=== PATIENT | male | born 1965 | race Caucasian/White ===

== ENCOUNTER 2018-10-09 07:27 | Observation (INO) | payer MEDICARE, OTHER ==
[2018-10-09] MEDS ORDERED: Sodium Chloride 0.9% 10 ML Syringe FLUSH PRN ×2 (07:50→11:09)
[2018-10-09 08:14] LABS: ANION GAP 15.4; CHLORIDE,CL 104 mmol/L (101-111); SODIUM,NA 139 mmol/L (135-145)
--- NOTE | 2018-10-09 08:24 | EDM.PDOC ---
ED HPI GENERAL MEDICAL PROBLEM - General Chief Complaint: Chest Pain Stated Complaint: CHEST PAIN,AMBULANCE Time Seen by Provider: 10/09/18 07:50 Source of Information: Reports: Patient, EMS, EMS Notes Reviewed, RN, RN Notes Reviewed History Limitations: Reports: No Limitations - History of Present Illness INITIAL COMMENTS - FREE TEXT/NARRATIVE: Patient presents to ER with complaint of pressure in the chest. He got up and almost passed out. Patient states he has been cardioverted x3, last being 2-3 weeks ago--done at [place], [place]. Chest pressure began at 0200. Onset: Today Duration: Constant Location: Reports: Chest Quality: Reports: Ache Severity: Severe Improves with: Reports: None Worsens with: Reports: None Associated Symptoms: Reports: No Other Symptoms - Related Data Allergies Allergy/AdvReac Type Severity Reaction Status Date / Time lisinopril Allergy Cough Verified 10/09/18 14:58 Home Meds: Home Meds Apixaban [Eliquis] 5 mg PO BID 10/09/18 [History] Carvedilol [Coreg] 6.25 mg PO BID 10/09/18 [History] Fish Oil/[place]-3 Fatty Acids [Fish Oil] 1 each PO DAILY 10/09/18 [History] Losartan [Cozaar] 100 mg PO DAILY 10/09/18 [History] Multivitamin [Multivitamins] 1 each PO DAILY 10/09/18 [History] Pravastatin [Pravachol] 40 mg PO BEDTIME 10/09/18 [History] hydroCHLOROthiazide [Hydrochlorothiazide] 25 mg PO DAILY 10/09/18 [History] Past Medical History Cardiovascular History: Reports: Heart Failure, High Cholesterol, Hypertension ED ROS GENERAL - Review of Systems Review Of Systems: ROS reveals no pertinent complaints other than HPI. ED EXAM, DIZZINESS - Physical Exam Exam: See Below Exam Limited By: No Limitations General Appearance: Alert, WD/WN, No Apparent Distress Eye Exam: Bilateral Eye: EOMI, Normal Inspection, PERRL Ears: Normal External Exam, Normal Canal, Hearing Grossly Normal, Normal TMs Nose: Normal Inspection, Normal Mucosa, No Blood Throat/Mouth: Normal Inspection, Normal Lips, Normal Teeth, Normal Gums, Normal Oropharynx, Normal Voice, No Airway Compromise Head Exam: Atraumatic, Normocephalic Neck: Normal Inspection, Supple, Non-Tender, Full Range of Motion Respiratory/Chest: Other (chest pressure. Lungs are coarse. ) Cardiovascular: Irregularly Irregular GI/Abdominal: Other (5 abdominal surgeries) (Male) Exam: Deferred Rectal (Males) Exam: Deferred Neurological: Alert, Normal Mood/Affect, Normal Dorsiflexion, CN II-XII Intact, Normal Plantar Flexion, Normal Gait, Normal Reflexes, No Motor/Sensory Deficits , Oriented x 3 Back Exam: Normal Inspection, Full Range of Motion, NT Extremities: Normal Inspection, Normal Range of Motion, Non-Tender, No Pedal Edema, Normal Capillary Refill Psychiatric: Normal Affect Skin Exam: Warm, Dry, Intact, Normal Color, No Rash ED PROCEDURES - Cardioversion Time of Cardioversion: 10:12 Indication: Other (Severely symptomatic atrial fibrillation in controlled rate) Patient Counseled: Yes Informed Consent Obtained: Yes Preparation: IV Access, Airway Management Equipment, Supplemental Oxygen, RT in Room, Monitor, Reversal Agents Available, 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) Pre-Procedure Sedation: Midazolam, Propofol Cardioversion Energy: 200J Sync Mode: Biphasic Successful: Yes (Sinus Rhythm 70-80) Number of Attempts: 1 Patient Condition Post Cardioversion: Improved Post Cardioversion EKG Reviewed: Yes (NSR) Course - Vital Signs Last Recorded V/S: Last Vital Signs Temp 98.9 F 10/09/18 15:09 Pulse 76 10/09/18 15:09 Resp 18 10/09/18 15:09 BP 117/68 10/09/18 15:09 Pulse Ox 98 10/09/18 15:09 Orthostatic Blood Pressure [ 132/83 Standing] Orthostatic Blood Pressure [ 129/80 Sitting] Orthostatic Blood Pressure [ 105/69 Supine] - Orders/Labs/Meds Labs: Laboratory Tests 10/09/18 10/09/18 10/09/18 Range/Units 07:35 07:35 07:35 WBC 9.5 (5.0-10.0) 10^3/uL RBC 5.36 (4.6-6.2) 10^6/uL Hgb 15.8 (14.0-18.0) g/dL Hct 47.7 (40.0-54.0) % MCV 89.0 (80-100) fL MCH 29.5 (27.0-34.0) pg MCHC 33.1 (33.0-35.0) g/dL Plt Count 279 (150-450) 10^3/uL Neut % (Auto) 62.0 (42.2-75.2) % Lymph % (Auto) 21.8 (20.5-50.1) % [place] % (Auto) 12.0 H (2-8) % Eos % (Auto) 3.8 H (1.0-3.0) % Baso % (Auto) 0.4 (0.0-1.0) % PT 9.9 (9.0-12.0) SEC INR 1.0 (0.9-1.2) Sodium 139 (135-145) mmol/L Potassium 3.4 L (3.6-5.0) mmol/L Chloride 104 (101-111) mmol/L Carbon Dioxide 23.0 (21.0-31.0) mmol/L Anion Gap 15.4 BUN 19 H (7-18) mg/dL Creatinine 0.9 (0.6-1.3) mg/dL Est Cr Clr Drug Dosing TNP Estimated GFR (MDRD) > 60 BUN/Creatinine Ratio 21.11 Glucose 122 H (74-105) mg/dL Calcium 9.4 (8.4-10.2) mg/dl Magnesium (1.8-2.5) mg/dL Total Bilirubin 0.7 (0.2-1.0) mg/dL AST 21 (10-42) IU/L ALT 18 (10-60) IU/L Alkaline Phosphatase 50 (42-121) IU/L Troponin I < 0.02 (0.00-0.02) ng/ml Total Protein 7.4 (6.7-8.2) g/dl Albumin 4.1 (3.2-5.5) g/dl Globulin 3.3 Albumin/Globulin Ratio 1.24 // Range/Units 09:35 WBC (5.0-10.0) 10^3/uL RBC (4.6-6.2) 10^6/uL Hgb (14.0-18.0) g/dL Hct (40.0-54.0) % MCV (80-100) fL MCH (27.0-34.0) pg MCHC (33.0-35.0) g/dL Plt Count (150-450) 10^3/uL Neut % (Auto) (42.2-75.2) % Lymph % (Auto) (20.5-50.1) % [place] % (Auto) (2-8) % Eos % (Auto) (1.0-3.0) % Baso % (Auto) (0.0-1.0) % PT (9.0-12.0) SEC INR (0.9-1.2) Sodium (135-145) mmol/L Potassium (3.6-5.0) mmol/L Chloride (101-111) mmol/L Carbon Dioxide (21.0-31.0) mmol/L Anion Gap BUN (7-18) mg/dL Creatinine (0.6-1.3) mg/dL Est Cr Clr Drug Dosing Estimated GFR (MDRD) BUN/Creatinine Ratio Glucose (74-105) mg/dL Calcium (8.4-10.2) mg/dl Magnesium 2.0 (1.8-2.5) mg/dL Total Bilirubin (0.2-1.0) mg/dL AST (10-42) IU/L ALT (10-60) IU/L Alkaline Phosphatase (42-121) IU/L Troponin I (0.00-0.02) ng/ml Total Protein (6.7-8.2) g/dl Albumin (3.2-5.5) g/dl Globulin Albumin/Globulin Ratio Meds: Medications Discontinued Medications Generic Name Dose Route Start Last Admin Trade Name Freq PRN Reason Stop Dose Admin Carvedilol 6.25 mg 10/09/18 21:00 Coreg PO BID [facility] Hydrochlorothiazide 25 mg 10/10/18 09:00 Hydrochlorothiazide PO DAILY [facility] Losartan Potassium 100 mg 10/10/18 09:00 Cozaar PO DAILY [facility] Midazolam HCl Confirm 10/09/18 10:08 Versed 1 Mg/Ml Administered 10/09/18 10:09 Dose 2 mg .ROUTE .STK-MED ONE Multivitamins 1 each 10/10/18 09:00 Thera PO DAILY [facility] Non-Formulary Medication 5 mg 10/09/18 21:00 Apixaban [Eliquis] PO BID [facility] Non-Formulary Medication 1 each 10/10/18 09:00 Fish Oil/[place]-3 Fatty Acids [Fish Oil] PO DAILY [facility] Potassium Chloride 40 meq 10/09/18 11:12 10/09/18 13:18 Klor-Con 10 PO 10/09/18 11:13 40 meq ONETIME ONE Administration Pravastatin Sodium 40 mg 10/09/18 21:00 Pravachol PO BEDTIME [facility] Sodium Chloride 10 ml 10/09/18 07:50 Saline Flush FLUSH ASDIRECTED PRN Keep Vein Open Sodium Chloride 10 ml 10/09/18 11:09 Saline Flush FLUSH ASDIRECTED PRN Keep Vein Open - Radiology Interpretation Free Text/Narrative:: Chest xray: Findings/impression: Heart size is within normal limits for technique. The aorta appears tortuous but non-aneurysmal. Lungs are grossly clear. There is no effusion or pneumothorax. Thank you for allowing us to participate in the care of your patient. Dictated and Authenticated by: Chava Mckeon MD 10/09/2018 8:07 AM Central Time ([place] & [place]) See rad report - Re-Assessments/Exams Free Text/Narrative Re-Assessment/Exam: 10/12/18 07:56 Patient case discussed with Dr. Maldonado who agreed to admit the patient for observation. Departure - Departure Time of Disposition: 11:03 Disposition: Refer to Observation Condition: Good Clinical Impression: Atrial fibrillation with normal ventricular rate, History of cardioversion, Dizziness, Near syncope - Discharge Information *PRESCRIPTION DRUG MONITORING PROGRAM REVIEWED*: No *COPY OF PRESCRIPTION DRUG MONITORING REPORT IN PATIENT DANYELLE: No
[2018-10-09] MEDS ORDERED: Midazolam 1 MG/ML 2 ML SDV ONE (10:08)
[2018-10-09] MEDS ORDERED: Potassium Chloride 10 MEQ Tab.ER PO ONE (11:12)
--- NOTE | 2018-10-09 11:17 | PCM.HP ---
H&P History of Present Illness - General Date of Service: 10/09/18 Admit Problem/Dx: Admission Diagnosis/Problem Admission Diagnosis/Problem Atrial fibrillation or flutter Source of Information: Patient History Limitations: Reports: No Limitations - History of Present Illness Initial Comments - Free Text/Narative: 53 yo M with PMH of afib on AC, htn, hld, who presents with palpitations, pre- syncopal episode. Patient reports waking up this morning with palpitations, dizziness/ lightheadedness. He had no CP, no SOB, no diaphoresis, no abdominal pain, no n/v HE came to the ER where he was found to be in afib. He had a DC cardioversion with conversion to SR. Symptoms resolved after DC cardioversion Admission was requested for ACS r/o, monitoring. Lives in [place]. Visiting [place] for i-drive. - Related Data Allergies/Adverse Reactions: Allergies Allergy/AdvReac Type Severity Reaction Status Date / Time No Known Allergies Allergy Verified 10/09/18 07:42 Home Medications: Home Meds Apixaban [Eliquis] 5 mg PO BID 10/09/18 [History] Carvedilol [Coreg] 6.25 mg PO BID 10/09/18 [History] Fish Oil/[place]-3 Fatty Acids [Fish Oil] 1 each PO DAILY 10/09/18 [History] Losartan [Cozaar] 100 mg PO DAILY 10/09/18 [History] Multivitamin [Multivitamins] 1 each PO DAILY 10/09/18 [History] Pravastatin [Pravachol] 40 mg PO BEDTIME 10/09/18 [History] hydroCHLOROthiazide [Hydrochlorothiazide] 25 mg PO DAILY 10/09/18 [History] Past Medical History Cardiovascular History: Reports: Afib - Past Surgical History Cardiovascular Surgical History: Reports: Other (See Below) Other Cardiovascular Surgeries/Procedures: cardiversion Social & Family History - Family History Family Medical History: Noncontributory - Tobacco Use Smoking Status *Q: Never Smoker - Caffeine Use Caffeine Use: Reports: Coffee - Alcohol Use Days Per Week of Alcohol Use: 2 Number of Drinks Per Day: 1 Total Drinks Per Week: 2 - Recreational Drug Use Recreational Drug Use: No H&P Review of Systems - Review of Systems: Review Of Systems: ROS reveals no pertinent complaints other than HPI. General: Reports: No Symptoms HEENT: Reports: No Symptoms Pulmonary: Reports: No Symptoms Cardiovascular: Reports: Palpitations Gastrointestinal: Reports: No Symptoms Genitourinary: Reports: No Symptoms Musculoskeletal: Reports: No Symptoms Exam - Exam Exam: See Below - Vital Signs Vital Signs: Last Vital Signs Temp 37.0 C 10/09/18 11:08 Pulse 75 10/09/18 11:08 Resp 20 10/09/18 11:08 BP 101/71 10/09/18 11:08 Pulse Ox 99 10/09/18 11:08 Orthostatic Blood Pressure [ 132/83 Standing] Orthostatic Blood Pressure [ 129/80 Sitting] Orthostatic Blood Pressure [ 105/69 Supine] Weight: 185.791 kg - Exam General: Alert, Oriented HEENT: Conjunctiva Clear Neck: Supple Lungs: Clear to Auscultation Cardiovascular: Regular Rate, Regular Rhythm GI/Abdominal Exam: Normal Bowel Sounds, Soft - Patient Data Lab Results Last 24 hrs: Laboratory Results - last 24 hr 10/09/18 10/09/18 10/09/18 Range/Units 07:35 07:35 07:35 WBC 9.5 (5.0-10.0) 10^3/uL RBC 5.36 (4.6-6.2) 10^6/uL Hgb 15.8 (14.0-18.0) g/dL Hct 47.7 (40.0-54.0) % MCV 89.0 (80-100) fL MCH 29.5 (27.0-34.0) pg MCHC 33.1 (33.0-35.0) g/dL Plt Count 279 (150-450) 10^3/uL Neut % (Auto) 62.0 (42.2-75.2) % Lymph % (Auto) 21.8 (20.5-50.1) % [place] % (Auto) 12.0 H (2-8) % Eos % (Auto) 3.8 H (1.0-3.0) % Baso % (Auto) 0.4 (0.0-1.0) % PT 9.9 (9.0-12.0) SEC INR 1.0 (0.9-1.2) Sodium 139 (135-145) mmol/L Potassium 3.4 L (3.6-5.0) mmol/L Chloride 104 (101-111) mmol/L Carbon Dioxide 23.0 (21.0-31.0) mmol/L Anion Gap 15.4 BUN 19 H (7-18) mg/dL Creatinine 0.9 (0.6-1.3) mg/dL Est Cr Clr Drug Dosing TNP Estimated GFR (MDRD) > 60 BUN/Creatinine Ratio 21.11 Glucose 122 H (74-105) mg/dL Calcium 9.4 (8.4-10.2) mg/dl Magnesium (1.8-2.5) mg/dL Total Bilirubin 0.7 (0.2-1.0) mg/dL AST 21 (10-42) IU/L ALT 18 (10-60) IU/L Alkaline Phosphatase 50 (42-121) IU/L Troponin I < 0.02 (0.00-0.02) ng/ml Total Protein 7.4 (6.7-8.2) g/dl Albumin 4.1 (3.2-5.5) g/dl Globulin 3.3 Albumin/Globulin Ratio 1.24 10/09/18 Range/Units 09:35 WBC (5.0-10.0) 10^3/uL RBC (4.6-6.2) 10^6/uL Hgb (14.0-18.0) g/dL Hct (40.0-54.0) % MCV (80-100) fL MCH (27.0-34.0) pg MCHC (33.0-35.0) g/dL Plt Count (150-450) 10^3/uL Neut % (Auto) (42.2-75.2) % Lymph % (Auto) (20.5-50.1) % [place] % (Auto) (2-8) % Eos % (Auto) (1.0-3.0) % Baso % (Auto) (0.0-1.0) % PT (9.0-12.0) SEC INR (0.9-1.2) Sodium (135-145) mmol/L Potassium (3.6-5.0) mmol/L Chloride (101-111) mmol/L Carbon Dioxide (21.0-31.0) mmol/L Anion Gap BUN (7-18) mg/dL Creatinine (0.6-1.3) mg/dL Est Cr Clr Drug Dosing Estimated GFR (MDRD) BUN/Creatinine Ratio Glucose (74-105) mg/dL Calcium (8.4-10.2) mg/dl Magnesium 2.0 (1.8-2.5) mg/dL Total Bilirubin (0.2-1.0) mg/dL AST (10-42) IU/L ALT (10-60) IU/L Alkaline Phosphatase (42-121) IU/L Troponin I (0.00-0.02) ng/ml Total Protein (6.7-8.2) g/dl Albumin (3.2-5.5) g/dl Globulin Albumin/Globulin Ratio Result Diagrams: 10/09/18 07:35 10/09/18 07:35 Problem List Initiated/Reviewed/Updated: Yes Orders Last 24hrs: Active Orders 24 hr Category Date Time Status Patient Status [ADT] Routine ADT 10/09/18 11:09 Ordered Ambulate [RC] ASDIRECTED Care 10/09/18 11:09 Ordered Height and Weight [RC] DAILY Care 10/09/18 11:09 Ordered Oxygen Therapy [RC] PRN Care 10/09/18 11:09 Ordered Peripheral IV Care [RC] . DIRECTED Care 10/09/18 07:51 Active Peripheral IV Care [RC] . DIRECTED Care 10/09/18 11:09 Ordered Up With Assistance [RC] ASDIRECTED Care 10/09/18 11:09 Ordered VTE/DVT Education [RC] PER UNIT ROUTINE Care 10/09/18 11:09 Ordered Vital Signs [RC] Q4H Care 10/09/18 11:09 Ordered Regular Diet [DIET] Diet 10/09/18 Breakfast Ordered TROPONIN I [CHEM] Q6H Lab 10/09/18 16:00 Ordered TROPONIN I [CHEM] Q6H Lab 10/09/18 22:00 Ordered Apixaban [Eliquis] Med 10/09/18 21:00 Ordered 5 mg PO BID Carvedilol [Coreg] Med 10/09/18 21:00 Ordered 6.25 mg PO BID Fish Oil/[place]-3 Fatty Acids [Fish Oil] Med 10/10/18 09:00 Ordered 1 each PO DAILY Losartan [Cozaar] Med 10/10/18 09:00 Ordered 100 mg PO DAILY Multivitamin [Multivitamins] Med 10/10/18 09:00 Ordered 1 each PO DAILY Potassium Chloride [Klor-Con 10] Med 10/09/18 11:12 Once 40 meq PO ONETIME ONE Pravastatin Sodium Med 10/09/18 21:00 Ordered 40 mg PO BEDTIME Sodium Chloride 0.9% [Saline Flush] Med 10/09/18 07:50 Active 10 ml FLUSH ASDIRECTED PRN Sodium Chloride 0.9% [Saline Flush] Med 10/09/18 11:09 Ordered 10 ml FLUSH ASDIRECTED PRN hydroCHLOROthiazide Med 10/10/18 09:00 Ordered 25 mg PO DAILY Peripheral IV Insertion Adult [OM.PC] Routine Oth 10/09/18 11:09 Ordered Peripheral IV Insertion Adult [OM.PC] Stat Oth 10/09/18 07:50 Ordered Saline Lock Insert [OM.PC] Routine Oth 10/09/18 11:09 Ordered Code Status [Resuscitation Status] Routine Resus Stat 10/09/18 11:10 Ordered Medication Orders Sodium Chloride (Saline Flush) 10 ml FLUSH ASDIRECTED PRN PRN Reason: Keep Vein Open Sodium Chloride (Saline Flush) 10 ml FLUSH ASDIRECTED PRN PRN Reason: Keep Vein Open Assessment/Plan Comment:: #Symptomatic Atrial fibrillation s/p DC cardioversion stable initial troponin negative monitor on cardiac nurse serial EKG, serial troponin continue carvedilol continue anticoagulation with eliquis #HTN continue home BP meds #HLD continue pravastatin #DVT ppx on eliquis FC
--- NOTE | 2018-10-09 16:17 | PCM.DCSUM1 ---
Discharge Summary - Hospital Course Free Text/Narrative:: 53 yo M with PMH of obesity, afib on AC, htn, hld who p/w afib. Had DC cardioversion in the ED with conversion to NSR However, continued to have marked bradycardia during observation on the medical floor Unable to transfer to [place] due to weather advisory. Called [facility], and patient was accepted by Dr. Uriostegui. - Discharge Data Discharge Date: 10/09/18 Discharge Disposition: DC/Tfer to Acute Hospital 02 Condition: Good - Discharge Plan Home Medications: Home Meds Apixaban [Eliquis] 5 mg PO BID 10/09/18 [History] Carvedilol [Coreg] 6.25 mg PO BID 10/09/18 [History] Fish Oil/[place]-3 Fatty Acids [Fish Oil] 1 each PO DAILY 10/09/18 [History] Losartan [Cozaar] 100 mg PO DAILY 10/09/18 [History] Multivitamin [Multivitamins] 1 each PO DAILY 10/09/18 [History] Pravastatin [Pravachol] 40 mg PO BEDTIME 10/09/18 [History] hydroCHLOROthiazide [Hydrochlorothiazide] 25 mg PO DAILY 10/09/18 [History] Forms: ED Department Discharge Referrals: PCP,Not In Area [Primary Care Provider] - - Discharge Summary/Plan Comment DC Time >30 min.: Yes - Patient Data Vitals - Most Recent: Last Vital Signs Temp 37.2 C 10/09/18 15:09 Pulse 76 10/09/18 15:09 Resp 18 10/09/18 15:09 BP 117/68 10/09/18 15:09 Pulse Ox 98 10/09/18 15:09 Orthostatic Blood Pressure [ 132/83 Standing] Orthostatic Blood Pressure [ 129/80 Sitting] Orthostatic Blood Pressure [ 105/69 Supine] Weight - Most Recent: 185.791 kg I&O - Last 24 hours: Intake & Output 10/09/18 10/09/18 10/09/18 06:59 14:59 22:59 Intake Total 940 Balance 940 Lab Results - Last 24 hrs: Laboratory Results - last 24 hr 10/09/18 10/09/18 10/09/18 Range/Units 07:35 07:35 07:35 WBC 9.5 (5.0-10.0) 10^3/uL RBC 5.36 (4.6-6.2) 10^6/uL Hgb 15.8 (14.0-18.0) g/dL Hct 47.7 (40.0-54.0) % MCV 89.0 (80-100) fL MCH 29.5 (27.0-34.0) pg MCHC 33.1 (33.0-35.0) g/dL Plt Count 279 (150-450) 10^3/uL Neut % (Auto) 62.0 (42.2-75.2) % Lymph % (Auto) 21.8 (20.5-50.1) % [place] % (Auto) 12.0 H (2-8) % Eos % (Auto) 3.8 H (1.0-3.0) % Baso % (Auto) 0.4 (0.0-1.0) % PT 9.9 (9.0-12.0) SEC INR 1.0 (0.9-1.2) Sodium 139 (135-145) mmol/L Potassium 3.4 L (3.6-5.0) mmol/L Chloride 104 (101-111) mmol/L Carbon Dioxide 23.0 (21.0-31.0) mmol/L Anion Gap 15.4 BUN 19 H (7-18) mg/dL Creatinine 0.9 (0.6-1.3) mg/dL Est Cr Clr Drug Dosing TNP Estimated GFR (MDRD) > 60 BUN/Creatinine Ratio 21.11 Glucose 122 H (74-105) mg/dL Calcium 9.4 (8.4-10.2) mg/dl Magnesium (1.8-2.5) mg/dL Total Bilirubin 0.7 (0.2-1.0) mg/dL AST 21 (10-42) IU/L ALT 18 (10-60) IU/L Alkaline Phosphatase 50 (42-121) IU/L Troponin I < 0.02 (0.00-0.02) ng/ml Total Protein 7.4 (6.7-8.2) g/dl Albumin 4.1 (3.2-5.5) g/dl Globulin 3.3 Albumin/Globulin Ratio 1.24 10/09/18 Range/Units 09:35 WBC (5.0-10.0) 10^3/uL RBC (4.6-6.2) 10^6/uL Hgb (14.0-18.0) g/dL Hct (40.0-54.0) % MCV (80-100) fL MCH (27.0-34.0) pg MCHC (33.0-35.0) g/dL Plt Count (150-450) 10^3/uL Neut % (Auto) (42.2-75.2) % Lymph % (Auto) (20.5-50.1) % [place] % (Auto) (2-8) % Eos % (Auto) (1.0-3.0) % Baso % (Auto) (0.0-1.0) % PT (9.0-12.0) SEC INR (0.9-1.2) Sodium (135-145) mmol/L Potassium (3.6-5.0) mmol/L Chloride (101-111) mmol/L Carbon Dioxide (21.0-31.0) mmol/L Anion Gap BUN (7-18) mg/dL Creatinine (0.6-1.3) mg/dL Est Cr Clr Drug Dosing Estimated GFR (MDRD) BUN/Creatinine Ratio Glucose (74-105) mg/dL Calcium (8.4-10.2) mg/dl Magnesium 2.0 (1.8-2.5) mg/dL Total Bilirubin (0.2-1.0) mg/dL AST (10-42) IU/L ALT (10-60) IU/L Alkaline Phosphatase (42-121) IU/L Troponin I (0.00-0.02) ng/ml Total Protein (6.7-8.2) g/dl Albumin (3.2-5.5) g/dl Globulin Albumin/Globulin Ratio Med Orders - Current: Current Medications Carvedilol (Coreg) 6.25 mg PO BID [facility] Hydrochlorothiazide (Hydrochlorothiazide) 25 mg PO DAILY [facility] Losartan Potassium (Cozaar) 100 mg PO DAILY [facility] Multivitamins (Thera) 1 each PO DAILY [facility] Non-Formulary Medication (Apixaban [Eliquis]) 5 mg PO BID [facility] Non-Formulary Medication (Fish Oil/[place]-3 Fatty Acids [Fish Oil]) 1 each PO DAILY [facility] Pravastatin Sodium (Pravachol) 40 mg PO BEDTIME [facility] Sodium Chloride (Saline Flush) 10 ml FLUSH ASDIRECTED PRN PRN Reason: Keep Vein Open Sodium Chloride (Saline Flush) 10 ml FLUSH ASDIRECTED PRN PRN Reason: Keep Vein Open Discontinued Medications Midazolam HCl (Versed 1 Mg/Ml) Confirm Administered Dose 2 mg .ROUTE .STK-MED ONE Stop: 10/09/18 10:09 Potassium Chloride (Klor-Con 10) 40 meq PO ONETIME ONE Stop: 10/09/18 11:13 Last Admin: 10/09/18 13:18 Dose: 40 meq
[2018-10-09] MEDS ORDERED: Pravastatin 20 MG Tab PO SCH (21:00)
[2018-10-09] MEDS ORDERED: Carvedilol 6.25 MG Tab PO SCH (21:00)
[2018-10-09] MEDS ORDERED: Non-Formulary Medication 1 Each (Apixaban [Eliquis] 5 MG) PO SCH (21:00)
[2018-10-10] MEDS ORDERED: Hydrochlorothiazide 25 MG Tab PO SCH (09:00)
[2018-10-10] MEDS ORDERED: Multivitamins,Therapeutic Tab PO SCH (09:00)
[2018-10-10] MEDS ORDERED: Losartan 50 MG Tab PO SCH (09:00)
[2018-10-10] MEDS ORDERED: FISH OIL PO SCH (09:00)
[2018-10-10] MEDS ORDERED: OMEGA PO SCH (09:00)
== END 2018-10-09 16:20 ==
LOC: DL.ED 07:27 → UNDOADMOB 11:05 → DL.MS 11:05
PROVIDERS: ADMIT Hospitalist; ATTEND Hospitalist
DX: I48.91 Unspecified atrial fibrillation (principal); I10 Essential (primary) hypertension; E78.5 Hyperlipidemia, unspecified; Z88.8 Allergy status to other drugs, medicaments and biological substances; Z79.01 Long term (current) use of anticoagulants; Z79.899 Other long term (current) drug therapy
CPT/HCPCS: 36415; 71045; 80053; 83735; 84484; 85025; 85610; 99285; A9270-GY; G0378